=== PATIENT | female | born 1995 | race Caucasian/White ===

== ENCOUNTER → 2020-07-31 15:47 | Outpatient (CLI) | payer OTHER, SELFPAY ==
--- NOTE | 2020-07-31 15:53 | CT_ITS ---
HISTORY: SINUSITIS. hx of polyps in sinuses. with reoccurring nose bleeds TECHNIQUE: Noncontrast CT images of the paranasal sinuses. A radiation dose optimization technique was used for this scan. IV Contrast dosage and agent: None. COMPARISON: None FINDINGS: FRONTAL SINUSES AND RECESSES: Clear. ETHMOID AIR CELLS: Clear. MAXILLARY SINUSES: Clear. OSTIOMEATAL COMPLEXES: Clear and normally formed. SPHENOID SINUSES: Clear. SPHENOETHMOIDAL RECESSES: Clear. Ancillary findings: NASAL TURBINATES: Unremarkable. NASAL SEPTUM: Midline. ORBITS: Unremarkable. VISUALIZED DENTITION: No acute findings. ANTERIOR CRANIAL FOSSA: Unremarkable. SOFT TISSUES: No acute findings. CT/Sinus/Facial Bone IMPRESSION: No significant abnormality. Individualized dose optimization techniques were used for this CT. at 0130 Reported and signed by: Bridgette Carrillo MD Electronically Signed: Bridgette Carrillo MD at 1:30 EST Tel , Service support ,
== END ==
PROVIDERS: Referring Provider Otolaryngology; Visit Provider Otolaryngology
DX: J32.9 Chronic sinusitis, unspecified (principal)
CPT/HCPCS: 70486